=== PATIENT | male | born 1935 | race Caucasian/White ===

== ENCOUNTER → 2019-12-31 | Day surgery (SDC) | payer OTHER ==
[2019-12-27 09:55] VITALS: BMI 31.1
[2019-12-31 11:34] VITALS: TEMP 97.8
[2019-12-31 13:49] VITALS: BP 118/60; PULSE 47
--- NOTE | 2019-12-31 17:48 | EKG ---
Test Reason : Blood Pressure : / mmHG Vent. Rate : 045 BPM Atrial Rate : 045 BPM P-R Int : 224 ms QRS Dur : 132 ms QT Int : 532 ms P-R-T Axes : 082 -32 079 degrees QTc Int : 460 ms SINUS BRADYCARDIA WITH 1ST DEGREE A-V BLOCK LEFT AXIS DEVIATION LEFT BUNDLE BRANCH BLOCK ABNORMAL ECG WHEN COMPARED WITH ECG OF 10-DEC-2019 15:09, PREMATURE ATRIAL COMPLEXES ARE NO LONGER PRESENT [place] INTERVAL HAS INCREASED VENT. RATE HAS DECREASED BY 26 BPM Confirmed by TULIO SCHUMACHER MD ([id number]) on 12/31/2019 5:48:29 PM Referred By: TULIO SCHUMACHER Confirmed By:TULIO SCHUMACHER MD
== END | disposition home or self-care (01) ==
LOC: JASU-ENDO 04:50
PROVIDERS: ATTEND Internal Medicine Cardiovascular Disease
PROC: 5A2204Z Restoration of Cardiac Rhythm, Single (ICD-10-PCS; principal; 2019-12-31 12:00)
DX: I48.19 Other persistent atrial fibrillation (principal)
CPT/HCPCS: 92960; 93005; 93010